=== PATIENT | female | born 1965 | race Caucasian/White ===

== ENCOUNTER → 2016-09-09 | Outpatient (CLI) | payer MEDICAID ==
--- NOTE | 2016-09-09 15:53 | US ---
EXAMINATION: Breast ultrasound HISTORY: General medical examination COMPARISON: None TECHNIQUE: Grayscale and color Doppler images obtained of the breasts bilaterally. FINDINGS: There is no abnormal mass noted bilaterally. No skin thickening or abnormal color Doppler flow. There are a few mildly prominent ducts noted bilaterally. No suspicious fluid collection. IMPRESSION: 1. BI-RADS 2: Benign finding. These continue screening according to the ACR guidelines.
== END ==
LOC: MW.US 10:57
PROVIDERS: ATTEND Family Medicine
DX: Z00.00 Encounter for general adult medical examination without abnormal findings (principal)
CPT/HCPCS: 76641-50; 766415026

== ENCOUNTER → 2016-09-11 | Outpatient (CLI) | payer MEDICAID ==
[2016-09-16 15:06] LABS: HPV 16 Not Detected (NOTDET); HPV 18 Not Detected (NOTDET)
== END | disposition home or self-care (01) ==
LOC: MW.CHFP 14:31
PROVIDERS: ATTEND Family Medicine
DX: Z12.4 Encounter for screening for malignant neoplasm of cervix (principal); Z00.00 Encounter for general adult medical examination without abnormal findings
CPT/HCPCS: 87624; G0145

== ENCOUNTER → 2016-09-13 | Outpatient (CLI) | payer MEDICAID ==
[~2016-09-13] MED LIST: Iopamidol 755 MG/ML 500 ML Multipack Bottle IVPUSH STA
--- NOTE | 2016-09-13 13:43 | CT ---
CT of the abdomen and pelvis with contrast. HISTORY: Left upper quadrant pain TECHNIQUE: Axial CT images were obtained of the abdomen and pelvis following administration of 100 m L of Isovue-370 in the left arm without complication. Coronal and sagittal reconstructions obtained. FINDINGS: The lungs are clear without focal consolidation. No pleural effusion or pneumothorax. The liver, spleen, and pancreas appears normal. There is a small 1.1 cm right adrenal nodule and the 1.4 x 1.6 cm left adrenal nodule. The pancreas and spleen appear normal. Cholecystectomy. The kidneys enhance and function symmetrically without evidence of obstructive uropathy. The large and small bowel are normal in caliber without evidence of obstruction. Sigmoid diverticulo sis without definite diverticulitis. Appendectomy. Urinary bladder appears normal. Uterus and ovarie s are grossly unremarkable. There is a small fat-containing periumbilical ventral hernia. No free pe lvic fluid or pelvic lymphadenopathy. Mild multilevel degenerative disc disease noted within the lumbar spine. No suspicious osseous abnor malities identified. IMPRESSION: 1. No acute findings within the abdomen or pelvis. 2. Small fat-containing periumbilical hernia. 3. Diverticulosis without evidence of diverticulitis. 4. Cholecystectomy and appendectomy.
== END ==
LOC: MW.DI 09-13 11:00
PROVIDERS: ATTEND Surgery
DX: R10.12 Left upper quadrant pain (principal); K42.9 Umbilical hernia without obstruction or gangrene; K57.30 Diverticulosis of large intestine without perforation or abscess without bleeding; Z90.49 Acquired absence of other specified parts of digestive tract
CPT/HCPCS: 74177; Q9967

== ENCOUNTER → 2016-09-13 | Outpatient (CLI) | payer MEDICAID ==
[2016-09-13 10:14] LABS: CHLORIDE,CL 111 mmol/L (98-110); SODIUM,NA 141 mmol/L (136-146)
--- NOTE | 2016-09-17 13:09 | XA ---
Exam Date: 09/13/16 Patient's Age: 51 HEIGHT: 63.0 in. WEIGHT: 200.0 lbs. INDICATIONS: Back pain, currently menopausal, tobacco user. FRACTURES: TREATMENTS: ASSESSMENT: The BMD measured at Femur Neck Mean is 0.754 g/cm2 with a T-score of -2.0. This patient is considered osteopenic according to World Health Organization ( WHO)criteria. Bone density is between 10% and 25% below young normal. Fracture risk is moderate. Treatment is advised. The BMD measured at Femur Troch Mean is 0.770 g/cm2 with a T-score of -0.7 is normal. Fracture risk is low. RESULTS: Site Region Age Classification T- Score BMD AP Spine L1-L4 52.3 Normal - 0.4 1.149 g/cm2 Dual Femur Neck Mean 52.3 Osteopenia -2.0 0.754 g/cm2 Dual Femur Troch Mean 52.3 N/A - 0.7 0.770 g/cm2 Dual Femur Total Mean 52.3 Normal - 0.4 0.962 g/cm2 World Health Organization - Criteria for post-menopausal, women: Normal: T-Score at or above -1 SD Osteopenia: T-Score between -1 and -2.5 SD Osteoporosis: T-Score at or below -2.5 SD RECOMMENDATION: Pharmacologic treatment recommendations & Initiate pharmacologic treatment: - In those with hip or vertebral (clinical or asymptomatic) fractures - In those with T -scores <-2.5 at the femoral neck, total hip, or lumbar spine by DXA - In postmenopausal women and men age 50 and older with low bone mass (T-score between -1.0 and -2.5, osteopenia) at the femoral neck, total hip, or lumbar spine by DXA and a 10-year hip fracture probability >3 % or a 10-year major osteoporosis-related fracture probability >20% based on the [place]-adapted WHO absolute fracture risk model (Fracture Risk Algorithm (FRAX); www. NOF.org and www.shef.ac.uk/FRAX) FOLLOW UP: People with diagnosed cases of osteoporosis or at high risk for fracture should have regular bone mineral density tests. For patients eligible for Medicare, routine testing is allowed once every 2 years. The testing frequency can be increased to 1 year for patients who have rapidly progressing disease, those who are reviewing or discontinuing medial therapy to restore bone mass, or have additional risk factors. People with diagnosed cases of osteoporosis or osteopenia should be regularly tested for bone mineral density. For patient eligible for Medicare, routine testing is allowed once every 2 years. The testing frequency can be increased to 1 year for patients who have rapidly progressing disease, or for those who are receiving medial therapy to restore bone mass. [facility] -- KAREN Beatty [phone] - FAX: [phone] [place]
== END ==
LOC: MW.DI 08:48
PROVIDERS: ATTEND Family Medicine
DX: Z00.00 Encounter for general adult medical examination without abnormal findings (principal); M19.90 Unspecified osteoarthritis, unspecified site; D50.9 Iron deficiency anemia, unspecified; R14.0 Abdominal distension (gaseous)
CPT/HCPCS: 36415; 77080; 77080-26; 80053; 80061; 83550; 84439; 84443; 84481; 84550; 85027; 85045; 85652; 86038; 86225; 86430

== ENCOUNTER → 2016-09-16 | Outpatient (CLI) | payer MEDICAID | END | disposition home or self-care (01) | LOC: MW.CHFP 10:50 | PROVIDERS: ATTEND Family Medicine | DX: M19.90 Unspecified osteoarthritis, unspecified site (principal) | CPT/HCPCS: 36415; 86812 ==

== ENCOUNTER 2016-10-02 08:54 | Day surgery (SDC) | payer MEDICAID ==
[~2016-10-02 08:54] MED LIST changes: -Iopamidol 755 MG/ML 500 ML Multipack Bottle IVPUSH STA; +Lactated Ringers 1,000 ML IV SCH; +Midazolam 1 MG/ML 2 ML SDV ONE; +Propofol 200 MG/20 ML SDV ONE; +Sodium Chloride 0.9% 10 ML Syringe FLUSH PRN; +Sodium Chloride 0.9% 2.5 ML Syringe FLUSH PRN; +fentaNYL 100 MCG/2 ML SDV ONE
--- NOTE | 2016-10-02 09:33 | PCM.PREANE ---
Preanesthetic Assessment - Anesthesia/Transfusion/Family Hx Anesthesia History: Prior Anesthesia Without Reaction Family History of Anesthesia Reaction: No Transfusion History: No Prior Transfusion(s) Intubation History: Unknown - Review of Systems General: No Symptoms Pulmonary: No Symptoms Cardiovascular: No Symptoms Gastrointestinal: Difficulty swallowing Neurological: No Symptoms Other: Reports: None - Physical Assessment Height: 1.6 m Weight: 81.647 kg ASA Class: 2 Mental Status: Alert & Oriented x3 Airway Class: Mallampati = 2 Dentition: Reports: Normal Dentition Thyro-Mental Finger Breadths: 2 Mouth Opening Finger Breadths: 2 ROM/Head Extension: Full Lungs: Clear to auscultation, Normal respiratory effort Cardiovascular: Regular Rate, Regular Rhythm - Allergies Allergies/Adverse Reactions: Allergies Allergy/AdvReac Type Severity Reaction Status Date / Time azithromycin Allergy Hives Verified 09/30/16 14:43 erythromycin base Allergy Airway Verified 09/30/16 14:43 Tightness latex Allergy Swelling Verified 09/30/16 14:43 - Blood Blood Available: No - Anesthesia Plan Pre-Op Medication Ordered: None - Acknowledgements Anesthesia Type Planned: MAC Pt an Appropriate Candidate for the Planned Anesthesia: Yes Alternatives and Risks of Anesthesia Discussed w Pt/Guardian: Yes Pt/Guardian Understands and Agrees with Anesthesia Plan: Yes PreAnesthesia Questionnaire HEENT History: Reports: None Cardiovascular History: Reports: Heart Murmur, Other (See Below) (low HDL levels ) Other Cardiovascular History: murmur noted during a Respiratory History: Reports: None Gastrointestinal History: Reports: GERD, Other (See Below) (dysphagia) Genitourinary History: Reports: None [employer]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: , Other (See Below) (h/o endometriosis) Musculoskeletal History: Reports: Arthritis, Fibromyalgia, Osteoarthritis Other Musculoskeletal History: hx of degenerative disc disease Neurological History: Reports: Migraines Psychiatric History: Reports: Depression, PTSD Endocrine/Metabolic History: Reports: Obesity/BMI 30+ Hematologic History: Reports: Anemia Immunologic History: Reports: None Oncologic (Cancer) History: Reports: None Dermatologic History: Reports: Psoriasis - Past Surgical History GI Surgical History: Reports: Appendectomy, Cholecystectomy, Other (See Below) Other GI Surgeries/Procedures: laparoscopies Female Surgical History: Reports: Section - SUBSTANCE USE Smoking Status *Q: Current Every Day Smoker (< 1/2 ppd now, smokes for 30 years) Tobacco Use Within Last Twelve Months: Cigarettes Days Per Week of Alcohol Use: 0 Recreational Drug Use History: No - HOME MEDS Home Medications: Home Meds Multivitamin [Daily Multiple Vitamin] 1 tab PO DAILY 09/30/16 [History] Naproxen Sodium [Aleve] 220 mg PO BID 09/30/16 [History] - CURRENT (IN HOUSE) MEDS Current Meds: Current Medications Lactated Ringer's (Ringers, Lactated) 1,000 mls @ 125 mls/hr IV ASDIRECTED STACIA Sodium Chloride (Saline Flush) 10 ml FLUSH ASDIRECTED PRN PRN Reason: Keep Vein Open Sodium Chloride (Saline Flush) 2.5 ml FLUSH ASDIRECTED PRN PRN Reason: Keep Vein Open Discontinued Medications Fentanyl (Sublimaze) Confirm Administered Dose 100 mcg .ROUTE .STK-MED ONE Stop: 10/02/16 06:51 Midazolam HCl (Versed 1 Mg/Ml) Confirm Administered Dose 2 mg .ROUTE .STK-MED ONE Stop: 10/02/16 06:51 Propofol (Diprivan 20 Ml) Confirm Administered Dose 400 mg .ROUTE .STK-MED ONE Stop: 10/02/16 06:51
[2016-10-02] MEDS ORDERED: Propofol 200 MG/20 ML SDV ONE (10:49)
--- NOTE | 2016-10-02 11:23 | PCM.OPNOTE ---
- General Post-Op/Procedure Note Date of Surgery/Procedure: 10/02/16 Operative Procedure(s): Diagnostic EGD and colonoscopy Findings: Normal EGD, 3 sigmoid polyps, 1 rectal polyp. Diverticulosis Pre Op Diagnosis: LUQ pain Post-Op Diagnosis: Diverticulosis, sigmoid polyp x 3 and 1 rectal polyp Anesthesia Technique: MAC Primary Surgeon: Becca Drake Condition: Good
--- NOTE | 2016-10-02 11:44 | PCM.POSTAN ---
POST ANESTHESIA ASSESSMENT - MENTAL STATUS Mental Status: alert, oriented - RESPIRATORY Respiratory Status: respiratory rate WNL, airway patent, O2 saturation stable - CARDIOVASCULAR CV Status: pulse rate WNL, blood pressure stable - GASTROINTESTINAL GI Status: no symptoms - POST OP HYDRATION Hydration Status: adequate & stable - OBSERVATIONS Free Text/Narrative:: no anesthesia problems
[2016-10-02 13:23] VITALS: BP 138/65
--- NOTE | 2016-10-02 15:16 | OR ---
SURGEON: DIONI COREY MD DATE OF PROCEDURE: 10/02/2016 PREOPERATIVE DIAGNOSIS: Left upper quadrant pain. POSTOPERATIVE DIAGNOSIS: Diverticulosis, sigmoid colon polyp x3, rectal polyp. PROCEDURE PERFORMED: Diagnostic esophagogastroduodenoscopy and colonoscopy. INSTRUMENT USED: Olympus endoscope, Olympus colonoscope. ANESTHESIA: MAC. EXTENT OF EXAM: To the second portion of the duodenum during the endoscopic portion to the cecum during the colonoscopic portion. Preparation good for the endoscopic portion, fair for the colonoscopic portion. LIMITATIONS: None. INDICATIONS: The patient is a 51-year-old female, who presents with a left upper quadrant pain. Her symptoms are vague. A CT of the abdomen was done that showed no acute intraabdominal pathology. The next step was performing a diagnostic EGD and colonoscopy to look for any abnormalities. The patient and I discussed the procedures as well as expected perioperative course. We discussed the risks, including bleeding, infection, or damage to surrounding structures, including perforation. The patient verbalized understanding and wishes to proceed. PROCEDURE IN DETAIL: The patient was brought into the endoscopy suite and placed in a beach chair position. A time-out was completed verifying the patient's name, age, date of , allergies, and procedure to be performed. A bite block was placed in the patient's mouth and monitored anesthesia care was induced. Continuous oxygen was provided via nasal cannula throughout the procedure. After adequate sedation was achieved, the Olympus endoscope was placed over the patient's tongue and advanced under direct visualization of the second portion of the duodenum. A photograph was taken of this. The scope was then pulled back while examining the upper GI tract. The duodenal mucosa all appeared normal. The scope was then brought into the stomach and a photograph was taken of the pylorus as well as with the scope retroflexed within the stomach. This allowed visualization of the esophageal hiatus, which appeared normal and a photograph was taken. The gastric mucosa appeared normal. Biopsies were taken of the gastric, antrum, body, and fundus and sent to pathology for H. pylori testing. The scope was then brought into the esophagus and a photograph was taken of the GE junction, which appeared normal. The remainder of the esophageal mucosa appeared normal. The scope was removed from the patient and this portion of the procedure was terminated. The patient was placed in the left lateral decubitus position. A digital rectal exam was performed. This examination showed mild hemorrhoidal disease. A well lubricated colonoscope was then inserted in the rectum and advanced under direct visualization to the level of cecum. The cecum was identified by both visual and anatomic landmarks. A photograph was taken of the cecal cap as well as with the scope retroflexed within the cecum. The scope was then straightened out and fully withdrawn while examining the color, texture, anatomy, and integrity mucosa from the cecum to the anal canal. The patient had diffuse diverticulosis mainly within the descending and sigmoid colon. There were three 1-2 mm sessile polyps within the distal sigmoid colon. These were removed using a cold biopsy forceps. The scope was brought into the rectum and a 2-3 mm pedunculated polyp was noted. This was removed using a cold biopsy forceps as well as a cold snare. This specimen was sent labeled as rectal polyp. The sigmoid polyps were sent labeled as sigmoid polyp #1, #2, and #3. The scope was then retroflexed within the rectum to allow visualization of the anal canal opening. This appeared normal and a photograph was taken. The scope was then straightened out and removed from the patient. The cecum to anus time was 18 minutes. The patient was then transferred to recovery room in stable condition. ENDOSCOPIC DIAGNOSES: Diverticulosis, sigmoid colon polyp x3, rectal polyp. RECOMMENDATION: Follow up in clinic in 2 weeks. YASMEEN PINEDA /[id number]
== END 2016-10-02 12:05 | disposition home or self-care (01) ==
LOC: MW.SDS 08:54
PROVIDERS: ATTEND Surgery
DX: Z12.11 Encounter for screening for malignant neoplasm of colon (principal); D12.8 Benign neoplasm of rectum; K63.5 Polyp of colon; K29.00 Acute gastritis without bleeding; K29.50 Unspecified chronic gastritis without bleeding; B96.81 Helicobacter pylori [H. pylori] as the cause of diseases classified elsewhere; K57.30 Diverticulosis of large intestine without perforation or abscess without bleeding; M79.7 Fibromyalgia; M19.90 Unspecified osteoarthritis, unspecified site; F32.9 Major depressive disorder, single episode, unspecified; E66.9 Obesity, unspecified; L40.9 Psoriasis, unspecified; F43.12 Post-traumatic stress disorder, chronic; F17.210 Nicotine dependence, cigarettes, uncomplicated; F12.10 Cannabis abuse, uncomplicated; Z91.040 Latex allergy status; Z88.1 Allergy status to other antibiotic agents; Z79.899 Other long term (current) drug therapy; Z90.49 Acquired absence of other specified parts of digestive tract; Z98.890 Other specified postprocedural states
CPT/HCPCS: 43239; 45380; 45385; J2250; J3010; J7120; 00740; 88305; 88312; J2704